=== PATIENT | female | born 1945 | race Caucasian/White ===

== ENCOUNTER 2017-04-15 13:57 | Inpatient (IN) | payer MEDICARE, BC, OTHER ==
[~2017-04-15] VITALS: Ht 162.6 cm; Wt 65.0 kg
[~2017-04-15 13:57] MED LIST: ANAS1TAB PO; CALCTAB19 PO; DENO120P SQ; DULO1CAP3 PO; FENT25DI T-DERMAL; HYDR-3516 PO; TEMA30CA PO
[2017-04-15 14:01] VITALS: BP 140/82; PULSE 95; RESP 17; TEMP 98.8; O2SAT 97
[2017-04-15 14:51] LABS: AUTOMATED NEUTROPHIL # 3.3 TH/MM3 (1.8-7.7); BASOPHIL % 0.4 % (0.0-2.0); EOSINOPHIL # 0.1 TH/MM3 (0-0.4); EOSINOPHIL % 1.5 % (0.0-4.0); HEMATOCRIT 36.6 % (35.0-46.0); HEMO FLAGS DIFF FINAL; LYMPH % 22.6 % (9.0-44.0); LYMPHOCYTE # 1.1 TH/MM3 (1.0-4.8); MEAN CELL VOLUME 88.8 FL (80.0-100.0); MEAN CORPUSCULAR HEMOGLOBIN 30.1 PG (27.0-34.0); MEAN CORPUSCULAR HGB CONC 33.9 % (32.0-36.0); MONO % 8.8 % (0.0-8.0); NEUT % 66.7 % (16.0-70.0); PLATELET COUNT 160 TH/MM3 (150-450); RED BLOOD COUNT 4.13 MIL/MM3 (4.00-5.30)
[2017-04-15 15:09] LABS: ACETAMINOPHEN LESS THAN 2.0 MCG/ML (10.0-30.0); ALT (GPT) 22 U/L (10-53); ANION GAP 7 MEQ/L (5-15); AST (GOT) 24 U/L (15-37); BICARBONATE 24.8 MEQ/L (21.0-32.0); BLOOD UREA NITROGEN 16 MG/DL (7-18); CHLORIDE 108 MEQ/L (98-107); GLOMERULAR FILTRATION RATE 65 ML/MIN (>89); POTASSIUM 4.2 MEQ/L (3.5-5.1); SODIUM (NA) 140 MEQ/L (136-145)
[2017-04-15 15:11] LABS: ALKALINE PHOSPHATASE 47 U/L (45-117); TOTAL BILIRUBIN ADULT 0.3 MG/DL (0.2-1.0)
[2017-04-15 15:37] LABS: ALCOHOL LESS THAN 3 MG/DL (0-5)
--- NOTE | 2017-04-15 15:56 | PD ---
HPI Chief Complaint: Psychiatric Symptoms Time Seen by Provider: 15:53 Travel History International Travel<30 days: No Contact w/Intl Traveler<30days: No Traveled to known affect area: No History of Present Illness HPI 71-year-old female that presents to the ED for evaluation of Ray act. Patient was Ray acted after apparently she made a suicidal statement to her significant other state that she was Take all her pills and an her life. She has a significant history of breast cancer and follows with her oncologist. Patient takes shots of tamoxifen for this. She states that she's been battling with the patient her whole life and she takes medications for this. Per patient she got very angry because of the cancer and family stressors and this is why she made this comment. Per patient she has no suicidal or homicidal ideation. No drug abuse or alcohol abuse. No other medical issues. She's never been Ray acted before. Denies any falls or injuries. PFSH Past Medical History Cancer: No Diabetes: No Glaucoma: No Hepatitis: No Hiatal Hernia: No Hypertension: No Thyroid Disease: No Past Surgical History Abdominal Surgery: Yes (APPENDECTOMY) Cardiac Surgery: No Ear Surgery: No Endocrine Surgery: No Eye Surgery: No Genitourinary Surgery: Yes (STIMULATOR FOR URINARY INCONT.) Gynecologic Surgery: Yes (HYSTERECTOMY) Oral Surgery: No Pacemaker: No Thoracic Surgery: Yes (RIGHT LUMPECTOMY C RADIATION) Social History Alcohol Use: No Tobacco Use: No Substance Use: No Allergies-Medications (Allergen,Severity, Reaction): Coded Allergies: No Known Allergies (Verified , 06/09/07) Reported Meds & Prescriptions Reported Meds & Active Scripts Active Reported Calcium 600+D 200 (Calcium Carbonate-Vitamin D) 600-200 Mg-Unit Tab 1 Tab PO BID Hydrocodone-Acetaminophen 5-325 mg Tab 1 Tab PO Q6H PRN Fentanyl Patch 72 HR (Fentanyl) 25 Mcg/Hr Patch 25 Mcg T-DERMAL Q72H Temazepam 30 Mg Cap 30 Mg PO HS PRN Duloxetine DR (Duloxetine HCl) 60 Mg Capdr 60 Mg PO DAILY Anastrozole 1 Mg Tab 1 Mg PO DAILY Xgeva Inj (Denosumab) 120 Mg/1.7 Ml Inj 120 Mg SQ Q28D Review of Systems Except as stated in HPI: all other systems reviewed are Neg Physical Exam Narrative GENERAL: SKIN: Warm and dry. HEAD: Atraumatic. Normocephalic. EYES: Pupils equal and round. No scleral icterus. No injection or drainage. ENT: No nasal bleeding or discharge. Mucous membranes pink and moist. Tongue is midline. No uvula deviation. NECK: Trachea midline. No JVD. CARDIOVASCULAR: Regular rate and rhythm. No murmurs, S3, S4. RESPIRATORY: No accessory muscle use. Clear to auscultation. Breath sounds equal bilaterally. GASTROINTESTINAL: Abdomen soft, non-tender, nondistended. Hepatic and splenic margins not palpable. MUSCULOSKELETAL: Extremities without clubbing, cyanosis, or edema. No obvious deformities. Full range of motion of the upper and lower extremities bilaterally. 2+ pulses bilaterally. NEUROLOGICAL: Awake and alert. No obvious cranial nerve deficits. Motor grossly within normal limits. Five out of 5 muscle strength in the arms and legs. Normal speech. PSYCHIATRIC: Appropriate mood and affect; insight and judgment normal. Data Data Last Documented VS Vital Signs Date Time Temp Pulse Resp B/P Pulse Ox O2 Delivery O2 Flow Rate FiO2 04/15/17 14:01 98.8 95 17 140/82 97 Orders Complete Blood Count With Diff (04/15/17 14:14) Comprehensive Metabolic Panel (04/15/17 14:14) Psych Screen (04/15/17 14:14) Drug Screen, Random Urine (04/15/17 14:14) Alcohol (Ethanol) (04/15/17 14:14) Salicylates (Aspirin) (04/15/17 14:14) Tylenol (Acetaminophen) (04/15/17 14:14) Labs Laboratory Tests Test 04/15/17 14:20 White Blood Count 5.0 TH/MM3 Red Blood Count 4.13 MIL/MM3 Hemoglobin 12.4 GM/DL Hematocrit 36.6 % Mean Corpuscular Volume 88.8 FL Mean Corpuscular Hemoglobin 30.1 PG Mean Corpuscular Hemoglobin 33.9 % Concent Red Cell Distribution Width 14.0 % Platelet Count 160 TH/MM3 Mean Platelet Volume 9.1 FL Neutrophils (%) (Auto) 66.7 % Lymphocytes (%) (Auto) 22.6 % Monocytes (%) (Auto) 8.8 % Eosinophils (%) (Auto) 1.5 % Basophils (%) (Auto) 0.4 % Neutrophils # (Auto) 3.3 TH/MM3 Lymphocytes # (Auto) 1.1 TH/MM3 Monocytes # (Auto) 0.4 TH/MM3 Eosinophils # (Auto) 0.1 TH/MM3 Basophils # (Auto) 0.0 TH/MM3 CBC Comment DIFF FINAL Differential Comment Sodium Level 140 MEQ/L Potassium Level 4.2 MEQ/L Chloride Level 108 MEQ/L Carbon Dioxide Level 24.8 MEQ/L Anion Gap 7 MEQ/L Blood Urea Nitrogen 16 MG/DL Creatinine 0.86 MG/DL Estimat Glomerular Filtration 65 ML/MIN Rate Random Glucose 94 MG/DL Calcium Level 8.7 MG/DL Total Bilirubin 0.3 MG/DL Aspartate Amino Transf 24 U/L (AST/SGOT) Alanine Aminotransferase 22 U/L (ALT/SGPT) Alkaline Phosphatase 47 U/L Total Protein 7.3 GM/DL Albumin 3.7 GM/DL Salicylates Level LESS THAN 1.7 MG/DL Urine Opiates Screen NEG Acetaminophen Level LESS THAN 2.0 MCG/ML Urine Barbiturates Screen NEG Urine Amphetamines Screen NEG Urine Benzodiazepines Screen POS Urine Cocaine Screen NEG Urine Cannabinoids Screen NEG Ethyl Alcohol Level LESS THAN 3 MG/DL MDM Medical Decision Making Medical Screen Exam Complete: Yes Emergency Medical Condition: Yes Medical Record Reviewed: Yes Interpretation(s) CBC & BMP Diagram 04/15/17 14:20 tox positive for benzos Differential Diagnosis Depression versus suicidal ideation versus anxiety versus adjustment disorder versus mood disorder versus bipolar disorder versus schizophrenia versus paranoid disorder versus psychosis versus substance abuse versus alcohol abuse versus alcohol induced psychosis versus homicidality addition versus cutting versus personality disorder Narrative Course 71-year-old female that presents to the ED for evaluation of psychiatric illness. No sign of acute medical distress. Labs were drawn. Patient will be medically clear. Okay to be seen by psych. Mental health screening was discussed with the patient. Diagnosis Primary Impression: Depression Qualified Code: F32.1 - Moderate single current episode of major depressive disorder Eric Gibson Apr 15, 2017 15:56
[2017-04-15] MEDS ORDERED: ALPR.5 PO (16:35)
[2017-04-15 17:34] VITALS: BP 132/77; PULSE 69; RESP 16; TEMP 97.8; O2SAT 99
[2017-04-15 22:00] VITALS: BP 144/89; PULSE 88; RESP 18; O2SAT 97
[2017-04-15] MEDS ORDERED: TEMAZEPAM 15 MG CAP PO STA (22:14)
[2017-04-16 06:22] VITALS: BP 122/72; PULSE 80; RESP 18; O2SAT 96
[2017-04-16 07:05] VITALS: BP 118/77; PULSE 76; RESP 16; TEMP 97.9; O2SAT 100
[2017-04-16 10:00] VITALS: BP 118/83; PULSE 69; RESP 16; TEMP 97.8; O2SAT 99
[2017-04-16] MEDS ORDERED: LORazepam 1 MG TAB PO PRN (12:45)
[2017-04-16] MEDS ORDERED: MAGNESIUM HYDROXIDE SUSP 30 ML CUP PO PRN (12:45)
[2017-04-16] MEDS ORDERED: ACETAMINOPHEN 325 MG TAB PO PRN (12:45)
[2017-04-16] MEDS ORDERED: DENOSUMAB 120 MG SQ SCH (12:45)
[2017-04-16] MEDS ORDERED: ALPRAZolam 0.5 MG TAB PO PRN (12:45)
[2017-04-16] MEDS ORDERED: LORazepam 0.5 MG TAB PO PRN (12:45)
[2017-04-16] MEDS ORDERED: TEMAZEPAM 15 MG CAP PO PRN (12:45)
[2017-04-16] MEDS ORDERED: ALUMINUM/MAGNESIUM/SIMETH 30 ML CUP PO PRN (12:45)
[2017-04-16] MEDS ORDERED: traZODone HCL 50 MG TAB PO PRN (12:45)
[2017-04-16] MEDS ORDERED: LORazepam 2 MG/ML VIAL IM PRN ×2 (12:45)
--- NOTE | 2017-04-16 12:49 | HHI.HP ---
Provisional Diagnosis Admission Date [place] I. Major depression, single episode, severe, without psychotic features Certification of Person's Competence To Provide Express and Informed Consent I have personally examined Vicenta Barton , a person being served at [facility] on, Apr 16, 2017 12:40. Express and informed consent means consent voluntarily given in writing, by a competent person, after sufficient explanation and disclosure of the subject matter involved to enable the person to make a knowing and willful decision without any element of force, fraud, deceit, duress, or other form of constraint or coercion. This person is 18 years of age or older, is not now known to be incompetent to consent to treatment with a guardian advocate, and does not have a health care surrogate or proxy currently making medical treatment decisions. I have found this person to be one of the following: [x] Competent to provide express and informed consent, as defined above, for voluntary admission to this facility and is competent to provide express and informed consent for treatment. He/she has the consistent capacity to make well reasoned, willful, and knowing decisions concerning his or her medical or mental health treatment. The person fully and consistently understands the purpose of the admission for examination/placement and is fully capable of personally exercising all rights [place] Incompetent to provide express and informed consent to voluntary admission, and this is incompetent to provide express and informed consent to treatment. The person must be transferred to involuntary status and a petition for a guardian advocate filed with the Circuit Court. [] Refusing to provide express and informed consent to voluntary admission but is competent to provide express and informed consent for treatment. The person must be discharged or transferred to involuntary status. Form shall be completed within 24 hours of a person's arrival at the receiving facility and filed in the clinical record of each person: 1. Admitted on a voluntary basis 2. Permitted to provide express and informed consent to his/her own treatment 3. Allowed to transfer from involuntary to voluntary status 4. Prior to permitting a person to consent to his or her own treatment after having been previously found incompetent to consent to treatment. History of Present Illness Capacity: Has Capacity HPI This is a 71-year-old female who is currently battling breast cancer, Ray acted last night after threatening her that she would overdose on all of her medications. Patient is experiencing multiple family stressors and getting into arguments with family members, including her . She admits to making this suicidal threat last evening but is currently denying suicidality. We spoke with the patient's who indicates she has become quite depressed over the last 2-3 weeks and he feels unsafe taking her home. The patient describes symptoms of depression to this physician which include depressed mood, anhedonia, diminished energy, sleep disturbance, appetite disturbance, concentration and memory difficulties, anxiety, tearfulness, feelings of hopelessness and helplessness, as well as suicidal ideation with plan. She denies any alcohol or drug abuse. She is working with an oncologist to treat her breast cancer. Review of Systems Except as stated in HPI: all other systems reviewed are Neg Past Psych History Psychological trauma history Patient has been placed on Cymbalta and seen some type of counselor in the [place] area. Denies psychological trauma. Violence risk - others (6 mos) Minimal Violence risk - self (6 mos) High Substance Abuse History Drugs/Alcohol past 12 months Denied Past Family Social History Coded Allergies: No Known Allergies (Verified , 04/15/17) Reported Medications Alprazolam (Xanax)0.5 Mg Tab0.5 Mg PO Q6H PRN (ANXIETY) Ref 0 04/15/17 Calcium Carbonate-Vitamin D (Calcium 600+D 200)600-200 Mg-Unit Tab1 Tab PO BID Ref 0 10/28/16 Temazepam 30 Mg Cap30 Mg PO HS PRN (INSOMNIA) #30 CAP Ref 0 10/28/[address] 60 Mg Capdr60 Mg PO DAILY #30 CAP Ref 0 10/28/16 Anastrozole 1 Mg Tab1 Mg PO DAILY #30 TAB Ref 0 10/28/16 Denosumab Inj (Xgeva Inj)120 Mg/1.7 Ml [id number] Mg SQ Q28D Ref 0 10/28/16 Discontinued Reported Medications Hydrocodone-Acetaminophen 5-325 mg Tab1 Tab PO Q6H PRN (PAIN) Ref 0 10/28/16 Fentanyl Patch 72 HR 25 Mcg/Hr Patch25 Mcg T-DERMAL Q72H #10 PATCH Ref 0 10/28/16 Family History Positive for cancer and positive for mood disorders. Social History Lives with her of over 50 years. Retired. Denies history of alcohol or substance abuse. Patient's Strengths (min. 2) Verbal and has access to healthcare. Physical Exam GENERAL: SKIN: Warm and dry. HEAD: Normocephalic. EYES: No scleral icterus. No injection or drainage. NECK: Supple, trachea midline. No JVD or lymphadenopathy. CARDIOVASCULAR: Regular rate and rhythm without murmurs, gallops, or rubs. RESPIRATORY: Breath sounds equal bilaterally. No accessory muscle use. GASTROINTESTINAL: Abdomen soft, non-tender, nondistended. MUSCULOSKELETAL: No cyanosis, or edema. BACK: Nontender without obvious deformity. No CVA tenderness. Vital Signs Vital Signs Date Time Temp Pulse Resp B/P Pulse Ox O2 Delivery O2 Flow Rate FiO2 04/16/17 10:00 97.8 69 16 118/83 99 Room Air Mental Status Examination Speech: Unremarkable Orientation: x3 Memory: Unremarkable Thought Process: Organized, Goal Directed Thought Content: Unremarkable Hallucination Type: None Attention and Concentration: Easily Distracted Suicidal Ideation: Yes Previous Suicide Attempts: No Homicidal Ideation: No Previous Homicide Attempts: No Insight: Fair Judgment: Unrealistic Affect: Anxious, Sad Mood: Appropriate, Sad, Anxious Motor Activity: Normal gait Assessment & Plan Problem List: (1) Severe major depression, single episode, without psychotic features ICD Code: F32.2 Assessment & Plan Estimated LOS: days 71-year-old female Ray acted for making threats of overdose to kill herself. Patient has multiple risk factors for suicide including her age, cancer diagnosis, etc. She is felt to be at high risk for self-harm. She is therefore being admitted for evaluation and treatment. This physician has spoken with the patient's nurse regarding her recent behavior. Case management is also being involved to speak with the and gather further information for appropriate treatment and disposition planning. We are ordering a CBC and comprehensive metabolic profile to determine any infectious or metabolic process which may be causing or contributing to her depression. Additionally, a thyroid-stimulating hormone level, vitamin B-12 level and vitamin D levels are being obtained to determine if any deficiency in those areas is causing or creating an contributing to her depression. A physical medicine consult is being requested to help us manage her cancer drugs. She will undergo a EKG to determine cardiac conduction status and her ability to tolerate antidepressant medicines without posing a risk to her heart function. Twan Young MD Apr 16, 2017 12:49
[2017-04-16 12:50] VITALS: BP 120/81; TEMP 97.8
[2017-04-16 14:35] VITALS: BP 135/81; PULSE 68; RESP 16; TEMP 98.7; O2SAT 99
[2017-04-16] MEDS: ANASTROZOLE 1 MG TAB PO SCH ×2 (15:00→22:01)
[2017-04-16] MEDS: DULoxetine HCl DR 60 MG CAP PO SCH (15:00)
[2017-04-16 16:50] VITALS: BP 116/71; PULSE 81; RESP 18; TEMP 97.8; O2SAT 99
--- NOTE | 2017-04-16 18:04 | PD.CONS ---
HPI Service [facility] Hospitalists Consult Requested By Psychiatric services Reason for Consult Medical management Primary Care Physician Sina Payne, Diagnoses: History of Present Illness Written by Addie Jang PA-C acting as scribe for Dr. Guzman on 04/16/17 at 18:56. This is a 71-year-old female with a past medical history significant for breast cancer with bony metastases currently treated by Dr. Stiles receiving Xgeva injections and Anastrozole 1mg daily who was brought into the ED under Ray act after making a suicidal comment to her spouse stating that she was going to take all of her pills and end her life. Patient is now admitted to the inpatient psychiatric unit and Hospitalist services have been consulted for medical management. Patient seen and examined today. Patient states that she had a falling out with her daughter was extremely upsetting to her. She reports making the comment about taking all of her pills and ending her life out of frustration and anger. She states that she has no desire to harm herself or anyone else. Currently, she is under the care of Dr. Stiles for her metastatic breast cancer and was due to have a Xgeva injection yesterday. She also states she has issues with peptic ulcer disease and sees a drafter electromechanical as an outpatient. At present, she denies any complaints of fever or chills. She also denies any chest pain, shortness of breath, nausea, vomiting or abdominal pain. Review of Systems Except as stated in HPI: all other systems reviewed are Neg Past Family Social History Allergies: Coded Allergies: No Known Allergies (Verified , 04/15/17) Past Medical History Breast cancer s/p right lumpectomy and radiation therapy now with with bony metastases currently under the treatment of Dr. Stiles receiving Xgeva injections and Anastrozole 1mg daily Past Surgical History Bilateral total knee replacements Right total shoulder replacement Right lumpectomy Hysterectomy Stimulator for urinary incontinence Appendectomy Reported Medications Calcium 600+D 200 (Calcium Carbonate-Vitamin D) 600-200 Mg-Unit Tab 1 Tab PO BID Hydrocodone-Acetaminophen 5-325 mg Tab 1 Tab PO Q6H PRN Fentanyl Patch 72 HR (Fentanyl) 25 Mcg/Hr Patch 25 Mcg T-DERMAL Q72H Temazepam 30 Mg Cap 30 Mg PO HS PRN Duloxetine DR (Duloxetine HCl) 60 Mg Capdr 60 Mg PO DAILY Anastrozole 1 Mg Tab 1 Mg PO DAILY Xgeva Inj (Denosumab) 120 Mg/1.7 Ml Inj 120 Mg SQ Q28D Active Ordered Medications Current Medications Medications (Trade) Dose Ordered Sig/Homero Route Start Time Stop Time Status Last Admin (Ativan) 1 mg Q6H PRN PO 04/16/17 12:45 (Ativan Inj) 1 mg Q6H PRN IM 04/16/17 12:45 (Ativan) 0.5 mg Q12H PRN PO 04/16/17 12:45 (Ativan Inj) 0.5 mg Q12H PRN IM 04/16/17 12:45 (Tylenol) 650 mg Q4H PRN PO 04/16/17 12:45 (Milk Of Magnesia Liq) 30 ml DAILY PRN PO 04/16/17 12:45 (Mag-Al Plus Susp Liq) 30 ml Q6H PRN PO 04/16/17 12:45 (Xanax) 0.5 mg Q6H PRN PO 04/16/17 12:45 (Cymbalta Dr) 60 mg DAILY PO 04/16/17 15:00 04/16/17 15:00 (Restoril) 30 mg HS PRN PO 04/16/17 12:45 (Oscal-D 250-125) 500 mg BID PO 04/16/17 21:00 Family History Great aunt, cancer Social History Patient has a history of tobacco use but quit 10 years ago. 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 She denies any previous history of drug use. She is and lives with her . She has 2 children. Physical Exam Vital Signs Vital Signs Date Time Temp Pulse Resp B/P Pulse Ox O2 Delivery O2 Flow Rate FiO2 04/16/17 16:50 97.8 81 18 116/71 99 04/16/17 14:35 98.7 68 16 135/81 99 04/16/17 12:50 97.8 73 16 120/81 99 04/16/17 10:00 97.8 69 16 118/83 99 Room Air 04/16/17 07:05 76 16 04/16/17 07:05 97.9 76 16 118/77 100 Room Air 04/16/17 06:22 80 18 122/72 96 Room Air 04/15/17 22:00 88 18 144/89 97 Room Air Physical Exam GENERAL: This is a well-nourished, well-developed patient, in no apparent distress. Awake and alert. SKIN: No rashes, ecchymoses or lesions. Cool and dry. HEAD: Atraumatic. Normocephalic. No temporal or scalp tenderness. EYES: Pupils equal round and reactive. Extraocular motions intact. No scleral icterus. No injection or drainage. ENT: Nose without bleeding or purulent drainage. Throat without erythema, tonsillar hypertrophy or exudate. Uvula midline. Airway patent. NECK: Trachea midline. No JVD or lymphadenopathy. Supple, nontender, no meningeal signs. CARDIOVASCULAR: Regular rate and rhythm without murmurs, gallops, or rubs. RESPIRATORY: Clear to auscultation. Breath sounds equal bilaterally. No wheezes , rales, or rhonchi. GASTROINTESTINAL: Abdomen soft, non-tender, nondistended. No hepato-splenomegaly , or palpable masses. No guarding. MUSCULOSKELETAL: Extremities without clubbing, cyanosis, or edema. No joint tenderness, effusion, or edema noted. No calf tenderness. NEUROLOGICAL: Awake and alert. Able to move all extremities. No focal neurologic findings appreciated. Normal speech. Result Diagram: 04/15/17 1420 04/15/17 1420 Assessment and Plan Assessment and Plan 71-year-old female with a past medical history significant for breast cancer with bony metastases currently treated by Dr. Stiles receiving Xgeva injections and Anastrozole 1mg daily who was brought into the ED under Ray act after making a suicidal comment to her spouse stating that she was going to take all of her pills and end her life. Patient is now admitted to the inpatient psychiatric unit and Hospitalist services have been consulted for medical management. Depression Suicidal ideation Management per psychiatric team Breast cancer s/p right lumpectomy and radiation therapy now with with bony metastases Patient is currently under the treatment of Dr. Stiles receiving Xgeva injections and was due for an injection yesterday Will consult Dr. Stiles Continue Anastrozole 1mg daily and calcium with vitamin D supplementation daily GERD/PUD Patient's followed by drafter electromechanical as outpatient. Recommend she follow- up with GI after her discharge. Protonix 40 mg daily DVT prophylaxis Patient is ambulatory This note was transcribed by maria de jesus Jang. I, Dr. Phil Modi personally performed the history, physical exam, and medical decision making; and confirmed the accuracy of the information in the transcribed note. Authenticated by Dr. Phil Modi on 04/16/17 at 18:07. Discussed Condition With Patient MiltonAddie Apr 16, 2017 18:04 Phil Holland MD Apr 16, 2017 23:20
[2017-04-16] MEDS: CALCIUM/VITAMIN D 250 MG/125 U TAB PO SCH (22:01)
[2017-04-17 05:59] VITALS: BP 105/52; PULSE 79; RESP 18; TEMP 98.5; O2SAT 96
[2017-04-17] MEDS ORDERED: PANTOPRAZOLE SOD 40 MG DELAYED RELEASE TAB PO SCH (09:00)
[2017-04-17] MEDS: DULoxetine HCl DR 60 MG CAP PO SCH (09:18)
[2017-04-17] MEDS: CALCIUM/VITAMIN D 250 MG/125 U TAB PO SCH (09:18)
[2017-04-17 11:01] LABS: AUTOMATED NEUTROPHIL # 3.7 TH/MM3 (1.8-7.7); BASOPHIL % 0.5 % (0.0-2.0); EOSINOPHIL # 0.1 TH/MM3 (0-0.4); EOSINOPHIL % 1.1 % (0.0-4.0); HEMATOCRIT 39.9 % (35.0-46.0); HEMO FLAGS DIFF FINAL; LYMPH % 21.6 % (9.0-44.0); LYMPHOCYTE # 1.2 TH/MM3 (1.0-4.8); MEAN CELL VOLUME 90.2 FL (80.0-100.0); MEAN CORPUSCULAR HEMOGLOBIN 30.5 PG (27.0-34.0); MEAN CORPUSCULAR HGB CONC 33.8 % (32.0-36.0); MONO % 8.1 % (0.0-8.0); NEUT % 68.7 % (16.0-70.0); PLATELET COUNT 167 TH/MM3 (150-450); RED BLOOD COUNT 4.42 MIL/MM3 (4.00-5.30); WHITE BLOOD COUNT 5.4 TH/MM3 (4.0-11.0)
[2017-04-17] MEDS ORDERED: ACETAMINOPHEN 325 MG TAB PO PRN (11:15)
[2017-04-17] MEDS ORDERED: ALUMINUM/MAGNESIUM/SIMETH 30 ML CUP PO PRN (11:15)
[2017-04-17] MEDS ORDERED: MAGNESIUM HYDROXIDE SUSP 30 ML CUP PO PRN (11:15)
--- NOTE | 2017-04-17 11:20 | HHI.DS ---
Psychiatry Discharge Summary Inpatient Psychiatric care?: Yes Advance Directive: Yes Mental Health AdvanceDirective: No Health Care Proxy: No Admission Admission Date Apr 16, 2017 at 11:34 Admission Diagnosis: (1) Severe major depression, single episode, without psychotic features ICD Code: F32.2 Brief History This is a 71-year-old female who is currently battling breast cancer, Ray acted last night after threatening her that she would overdose on all of her medications. Patient is experiencing multiple family stressors and getting into arguments with family members, including her . She admits to making this suicidal threat last evening but is currently denying suicidality. We spoke with the patient's who indicates she has become quite depressed over the last 2-3 weeks and he feels unsafe taking her home. The patient describes symptoms of depression to this physician which include depressed mood, anhedonia, diminished energy, sleep disturbance, appetite disturbance, concentration and memory difficulties, anxiety, tearfulness, feelings of hopelessness and helplessness, as well as suicidal ideation with plan. She denies any alcohol or drug abuse. She is working with an oncologist to treat her breast cancer. Tobacco Use In Past 30 Days: No Tobacco Past 30 Days Alcohol Use: Never Hospital Course Patient seen today with nurse Tran patient acknowledges some stress with relationship with her daughter, it appears covers somewhat stressed addressing patient's metastatic cancer. It appears that also somewhat contentious relationship with past. Patient also acknowledges being somewhat barclay with her anticancer medications. However she denies any suicidal ideation intent or plan at any time. She states some of her statement for somewhat impulsive. She denies any prior suicidal thoughts or intent or attempts. She denies any voices or visions with this denies any alcohol or drug use. Of interest patient is an alcoholic with 11 years of sobriety. She denies other drug use. States she stopped smoking 8 years ago. She is been for over 50 years to her she states they have a good relationship. Patient denies any physical or sexual abuse as a child. At this time patient is a little contracted to no harm. Her is also been in contact with us states he feels quite comfortable and safe taking his own today. He'll take full responsibility for safety behavior and follow-up. Patient did suggest we help her find a psychiatric services in the community. Will have counselor do that. Thus patient will be discharged today she may continue her own home scheduled medications including Cymbalta at 120 mg daily. The been no Rx by me she may follow up with her various medical doctors and oncologists. Results Blood Pressure 105 / 52 Vital Signs Date Time Temp Pulse Resp B/P Pulse Ox O2 Delivery O2 Flow Rate FiO2 04/17/17 05:59 98.5 79 18 105/52 96 04/16/17 10:00 Room Air Laboratory Tests Test 04/15/17 04/17/17 14:20 09:40 Monocytes (%) (Auto) 8.8 % (0.0-8.0) 8.1 % (0.0-8.0) Chloride Level 108 MEQ/L (98-107) Estimat Glomerular Filtration 65 ML/MIN (>89) Rate Salicylates Level LESS THAN 1.7 MG/DL (2.8-20.0) Acetaminophen Level LESS THAN 2.0 MCG/ML (10.0-30.0) Urine Benzodiazepines Screen POS (NEG) Summary of Major Lab Results Urine toxicology positive for benzodiazepines negative for alcohol Summary of Procedures None done Pending results at discharge: No Medications # of Antipsychotic meds at D/C: 0 Approp Antipsych med options 1 - Minimum of three failed multiple trials of monotherapy. 2 - Documented plan to taper to monotherapy due to previous use of multiple meds OR cross-taper in progress at D/C. 3 - Documentation of augmentation of Clozapine. 4 - Justification other than those listed in allowable values 1-3, document here : Discharge Discharge Date: Apr 17, 2017 Discharge Diagnosis: (1) Adjustment disorder with mixed disturbance of emotions and conduct Diagnosis: Principal ICD Code: F43.25 Mental Status Exam at Disch Alert oriented thin slender white female. She is normoactive. Mood is euthymic to mildly dysphoric with good range intensity of her affect. Speech rate and rhythm are within normal limits though no formal thought disorders. No auditory or visual hallucinations. No delusions. Insight and judgment is poor to fair. Cognition grossly intact. Pt Condition on Discharge: Stable Discharge Disposition: Discharge Home Discharge Instructions Diet Instructions: As Tolerated, No Restrictions Activities you can perform: Regular-No Restrictions Scheduled Appointment: follow-up PCP, follow-up neuropsychologist, follow-up psychiatric services through insurance company Discharge Time > 30 minutes Discharge/Advance Care Plan Health Problems: (1) Severe major depression, single episode, without psychotic features Goals to promote your health * To prevent worsening of your condition and complications * To maintain your health at the optimal level Directions to meet your goals Take your medications as prescribed Follow your dietary instruction Follow activity as directed Keep your appointments as scheduled Take your immunizations and boosters as scheduled If your symptoms worsen call your PCP, if no PCP go to Urgent Care Center or Emergency Room For 23/03 questions related to your inpatient stay or results of tests pending at discharge, please contact Dr. Kiel Smalls at Smoking is Dangerous to Your Health. Avoid second hand smoking Kiel Smalls MD Apr 17, 2017 11:20
[2017-04-17 11:38] LABS: ANION GAP 9 MEQ/L (5-15); AST (GOT) 21 U/L (15-37); BICARBONATE 27.9 MEQ/L (21.0-32.0); BLOOD UREA NITROGEN 14 MG/DL (7-18); CHLORIDE 106 MEQ/L (98-107); GLOMERULAR FILTRATION RATE 67 ML/MIN (>89); POTASSIUM 4.2 MEQ/L (3.5-5.1); SODIUM (NA) 143 MEQ/L (136-145)
[2017-04-17 12:12] LABS: ALKALINE PHOSPHATASE 47 U/L (45-117); ALT (GPT) 20 U/L (10-53); LDL CHOLESTEROL 173 MG/DL (0-99); TOTAL BILIRUBIN ADULT 0.4 MG/DL (0.2-1.0)
[2017-04-17 16:46] LABS: HEMOGLOBIN A1a 1.3 %; HEMOGLOBIN A1b 0.7 %; HEMOGLOBIN Ao 85.8 %; HEMOGLOBIN F 1.2 %; HEMOGLOBIN LA1C 1.8 %; HEMOGLOBIN P3 3.5 %
== END 2017-04-17 12:48 | disposition home or self-care (01) | DRG 885 ==
LOC: NEDAMB 13:57 → NEDA 04-16 11:34 → H250 04-16 13:22
PROVIDERS: ADMIT Psychiatry & Neurology Psychiatry; ATTEND Psychiatry & Neurology Psychiatry
DX: F32.2 Major depressive disorder, single episode, severe without psychotic features (principal); C79.51 Secondary malignant neoplasm of bone; R45.851 Suicidal ideations; F43.25 Adjustment disorder with mixed disturbance of emotions and conduct; C50.919 Malignant neoplasm of unspecified site of unspecified female breast; Z96.653 Presence of artificial knee joint, bilateral; Z96.611 Presence of right artificial shoulder joint; F10.21 Alcohol dependence, in remission; K21.9 Gastro-esophageal reflux disease without esophagitis; K27.7 Chronic peptic ulcer, site unspecified, without hemorrhage or perforation; Z87.891 Personal history of nicotine dependence; Z92.3 Personal history of irradiation; Z81.8 Family history of other mental and behavioral disorders
CPT/HCPCS: 80053; 80061; 80307; 82306; 82607; 83036; 84443; 85025; 99285